=== PATIENT | female | born 1975 | race Caucasian/White ===

== ENCOUNTER 2016-08-06 19:46 | Inpatient (IN) | payer MEDICARE ==
[~2016-08-06] VITALS: Ht 154.9 cm; Wt 55.8 kg
[~2016-08-06 19:46] MED LIST: COLACE 100MG C100 MG PO; FLEXERIL 10 MG10 MG PO; NEURONTIN600 MG PO; OXYCODONE HCL15 MG PO; PERCOCET 5-3251 EACH PO
[2016-08-06 22:09] LABS: HEMOGLOBIN 10.8 gm/dl (12.3-15.3); RED BLOOD COUNT 3.68 M/UL (4.00-5.10); WHITE BLOOD COUNT 5.4 K/UL (4.5-11.0)
[2016-08-06 22:27] LABS: BUN/CREATININE RATIO 18 (0-10)
[2016-08-07 10:34] LABS: BUN/CREATININE RATIO 18 (0-10)
[2016-08-08] MEDS ORDERED: POTASSIUM99 MG PO (00:39)
[2016-08-08] MEDS ORDERED: MAGNESIUM27 MG PO (00:39)
[2016-08-08] MEDS ORDERED: CALCIUM500 MG PO (00:40)
[2016-08-08] MEDS ORDERED: TYLENOL PM EX-1 EACH PO (00:41)
[2016-08-09 04:35] LABS: WHITE BLOOD COUNT 5.4 K/UL (4.5-11.0)
[2016-08-09 04:39] LABS: HEMOGLOBIN 8.8 gm/dl (12.3-15.3); RED BLOOD COUNT 3.02 M/UL (4.00-5.10)
[2016-08-09 05:16] LABS: BUN/CREATININE RATIO 16 (0-10)
[2016-08-09 09:54] LABS: HEMOGLOBIN 9.7 gm/dl (12.3-15.3)
[2016-08-10 06:16] LABS: HEMOGLOBIN 10.1 gm/dl (12.3-15.3); WHITE BLOOD COUNT 6.4 K/UL (4.5-11.0)
[2016-08-10 06:18] LABS: RED BLOOD COUNT 3.38 M/UL (4.00-5.10)
[2016-08-11 06:20] LABS: HEMOGLOBIN 10.3 gm/dl (12.3-15.3); RED BLOOD COUNT 3.54 M/UL (4.00-5.10)
[2016-08-11 06:25] LABS: WHITE BLOOD COUNT 4.6 K/UL (4.5-11.0)
[2016-08-11] MEDS ORDERED: IRON325 M1 PO (10:12)
[2016-08-11] MEDS ORDERED: MIRALAX17 GM PO (10:12)
[2016-08-11] MEDS ORDERED: DEPAKOTE500 MG PO (10:13)
[2016-08-11] MEDS ORDERED: VITAMIN B-1000 MCG/M IM (10:13)
== END 2016-08-11 12:52 | disposition home or self-care (01) | DRG 641 ==
LOC: ER1 19:46 → ZEROF 08-07 02:26 → M/S 08-07 18:45
PROVIDERS: Emergency Medicine; ADMIT Family Medicine
DX: E16.2 Hypoglycemia, unspecified (principal); K62.5 Hemorrhage of anus and rectum; D62 Acute posthemorrhagic anemia; K91.2 Postsurgical malabsorption, not elsewhere classified; K95.89 Other complications of other bariatric procedure; G40.909 Epilepsy, unspecified, not intractable, without status epilepticus; G43.919 Migraine, unspecified, intractable, without status migrainosus; K60.2 Anal fissure, unspecified; Z98.84 Bariatric surgery status; Z98.0 Intestinal bypass and anastomosis status; Y83.8 Other surgical procedures as the cause of abnormal reaction of the patient, or of later complication, without mention of misadventure at the time of the procedure; Y92.009 Unspecified place in unspecified non-institutional (private) residence as the place of occurrence of the external cause; G25.2 Other specified forms of tremor; F31.9 Bipolar disorder, unspecified; F41.8 Other specified anxiety disorders; R19.7 Diarrhea, unspecified; K59.00 Constipation, unspecified; K64.8 Other hemorrhoids; K64.4 Residual hemorrhoidal skin tags; F17.210 Nicotine dependence, cigarettes, uncomplicated; N39.490 Overflow incontinence; R53.1 Weakness; I10 Essential (primary) hypertension; K21.9 Gastro-esophageal reflux disease without esophagitis; G89.29 Other chronic pain; R10.9 Unspecified abdominal pain; M19.90 Unspecified osteoarthritis, unspecified site; E53.8 Deficiency of other specified B group vitamins; Z87.828 Personal history of other (healed) physical injury and trauma; Z96.641 Presence of right artificial hip joint; Z90.710 Acquired absence of both cervix and uterus; Z88.5 Allergy status to narcotic agent; Z88.6 Allergy status to analgesic agent; Z88.8 Allergy status to other drugs, medicaments and biological substances; Z79.891 Long term (current) use of opiate analgesic; Z79.1 Long term (current) use of non-steroidal anti-inflammatories (NSAID); Z79.899 Other long term (current) drug therapy; Z83.3 Family history of diabetes mellitus; Z82.49 Family history of ischemic heart disease and other diseases of the circulatory system; Z80.9 Family history of malignant neoplasm, unspecified
CPT/HCPCS: 36415; 70450; 71020; 80048; 80053; 81001; 82272; 82550; 82553; 82607; 82728; 82962; 83540; 83550; 83690; 83735; 84443; 84484; 84681; 85014; 85018; 85025; 85027; 87045; 87046; 87086; 87177; 93005; 95816; 96361; 96374; 96375; 96376; 99285; G0378; J1200; J2270; J2405; J2765; J3420; J7030; J7040; Q0163; Q9962

== ENCOUNTER 2021-09-12 17:12 | Inpatient (IN) | payer MEDICARE ==
[~2021-09-12] VITALS: Ht 154.9 cm; Wt 55.5 kg
[~2021-09-12 17:12] MED LIST changes: +CALCIUM500 MG PO; +CYANOCOBAL1000 MCG/1 SC; +DEPAKOTE500 MG PO; +IRON325 M1 PO; +MAGNESIUM27 MG PO; +MIRALAX17 GM PO; +PANTOPRAZOLE SO40 MG PO; +POTASSIUM99 MG PO; +TYLENOL PM EX-1 EACH PO; +VITAMIN B-1000 MCG/M IM
[2021-09-12 19:19] LABS: HEMOGLOBIN 8.7 gm/dl (12.3-15.3); RED BLOOD COUNT 3.01 M/UL (4.00-5.10); WHITE BLOOD COUNT 9.5 K/UL (4.5-11.0)
[2021-09-12 19:43] LABS: BUN/CREATININE RATIO 22 (0-10)
[2021-09-12 19:53] LABS: BORDETELLA PARAPERTUSSIS Not Detected (Not Detectd); BORDETELLA PERTUSSIS Not Detected (Not Detectd); CHLAMYDIA PNEUMONIAE Not Detected (Not Detectd); CORONAVIRUS HKU1 Not Detected (Not Detectd); CORONAVIRUS NL63 Not Detected (Not Detectd); CORONAVIRUS OC43 Not Detected (Not Detectd); CORONOAVIRUS 229E Not Detected (Not Detectd); HUMAN METAPNEUMOVIRUS Not Detected (Not Detectd); HUMAN RHINOVIRUS/ENTEROVIRUS Not Detected (Not Detectd); INFLUENZA A Not Detected (Not Detectd); INFLUENZA B Not Detected (Not Detectd); MYCOPLASMA PNEUMONIAE Not Detected (Not Detectd); PARAINFLUENZA VIRUS 1 Not Detected (Not Detectd); PARAINFLUENZA VIRUS 2 Not Detected (Not Detectd); PARAINFLUENZA VIRUS 3 Not Detected (Not Detectd); PARAINFLUENZA VIRUS 4 Not Detected (Not Detectd); RESPIRATORY SYNCYTIAL VIRUS Not Detected (Not Detectd)
[2021-09-12 20:27] LABS: SARS-CoV-2 NOT DETECTED (Not Detectd)
[2021-09-12] MEDS ORDERED: GABAPENTIN800 MG PO (23:22)
[2021-09-13 03:08] LABS: HEMOGLOBIN 9.4 gm/dl (12.3-15.3); RED BLOOD COUNT 3.27 M/UL (4.00-5.10)
[2021-09-13 03:19] LABS: WHITE BLOOD COUNT 6.2 K/UL (4.5-11.0)
[2021-09-13 03:36] LABS: BUN/CREATININE RATIO 17 (0-10)
[2021-09-14 03:15] LABS: RED BLOOD COUNT 3.12 M/UL (4.00-5.10)
[2021-09-14 03:22] LABS: WHITE BLOOD COUNT 9.2 K/UL (4.5-11.0)
[2021-09-14 04:02] LABS: BUN/CREATININE RATIO 17 (0-10)
[2021-09-15 06:27] LABS: HEMOGLOBIN 8.4 gm/dl (12.3-15.3); RED BLOOD COUNT 2.85 M/UL (4.00-5.10)
[2021-09-15 06:28] LABS: WHITE BLOOD COUNT 5.6 K/UL (4.5-11.0)
[2021-09-15 07:07] LABS: BUN/CREATININE RATIO 16 (0-10)
[2021-09-16 06:52] LABS: HEMOGLOBIN 9.3 gm/dl (12.3-15.3)
[2021-09-16 06:53] LABS: RED BLOOD COUNT 3.24 M/UL (4.00-5.10); WHITE BLOOD COUNT 7.3 K/UL (4.5-11.0)
[2021-09-16 07:13] LABS: BUN/CREATININE RATIO 19 (0-10)
[2021-09-16 16:14] LABS: ORGANISM ID Not indicated. (.); SPECIMEN SOURCE Urine (.); STREPTOCOCCUS PNEUMONIAE AG Negative (Negative)
[2021-09-17 06:16] LABS: HEMOGLOBIN 8.8 gm/dl (12.3-15.3); RED BLOOD COUNT 3.03 M/UL (4.00-5.10); WHITE BLOOD COUNT 7.6 K/UL (4.5-11.0)
[2021-09-17 06:28] LABS: BUN/CREATININE RATIO 14 (0-10)
[2021-09-18 07:04] LABS: HEMOGLOBIN 8.4 gm/dl (12.3-15.3); RED BLOOD COUNT 2.87 M/UL (4.00-5.10)
[2021-09-18 07:08] LABS: WHITE BLOOD COUNT 12.7 K/UL (4.5-11.0)
[2021-09-18 07:38] LABS: BUN/CREATININE RATIO 24 (0-10)
[2021-09-19 04:15] LABS: HEMOGLOBIN 8.2 gm/dl (12.3-15.3); RED BLOOD COUNT 2.82 M/UL (4.00-5.10)
[2021-09-19 04:32] LABS: BUN/CREATININE RATIO 19 (0-10)
[2021-09-19 04:57] LABS: WHITE BLOOD COUNT 9.1 K/UL (4.5-11.0)
[2021-09-19] MEDS ORDERED: AMOX TR-K CLV1 EAC4 PO (09:18)
[2021-09-19] MEDS ORDERED: FERROUS GLUCON324 M1 PO (09:18)
== END 2021-09-19 13:06 | disposition home or self-care (01) | DRG 178 ==
LOC: ER1 17:12 → M/S 21:12 → CDU 21:12 → MED SURG 4 21:12 → M/S 23:09 → MED SURG 4 09-14 17:45
PROVIDERS: Internal Medicine; Internal Medicine Critical Care Medicine; Preventive Medicine Occupational Medicine; ADMIT Internal Medicine
DX: A48.1 Legionnaires' disease (principal); Z20.822 Contact with and (suspected) exposure to COVID-19; I31.3 Pericardial effusion (noninflammatory); J90 Pleural effusion, not elsewhere classified; G89.29 Other chronic pain; R53.81 Other malaise; F31.9 Bipolar disorder, unspecified; D75.839 Thrombocytosis, unspecified; G40.909 Epilepsy, unspecified, not intractable, without status epilepticus; D64.9 Anemia, unspecified; K21.9 Gastro-esophageal reflux disease without esophagitis; F03.90 Unspecified dementia, unspecified severity, without behavioral disturbance, psychotic disturbance, mood disturbance, and anxiety; G43.909 Migraine, unspecified, not intractable, without status migrainosus; Z87.01 Personal history of pneumonia (recurrent); Z96.82 Presence of neurostimulator; Z98.890 Other specified postprocedural states; Z90.49 Acquired absence of other specified parts of digestive tract; Z90.710 Acquired absence of both cervix and uterus; Z80.3 Family history of malignant neoplasm of breast; Z88.8 Allergy status to other drugs, medicaments and biological substances; Z88.6 Allergy status to analgesic agent
CPT/HCPCS: 36415; 36600; 71045; 71046; 71250; 80048; 80053; 80076; 80307; 82009; 82550; 82553; 82607; 82728; 82746; 82803; 83540; 83550; 83605; 83690; 83880; 84484; 85025; 85027; 85379; 85652; 86140; 87040; 87081; 87205; 87278; 87633; 87899; 93005; 93970; 94664; 96361; 96374; 96375; 97116-GP-CQ; 97162; 99285; J0456; J0692; J0696; J1170; J1335; J1650; J2270; J2405; J2930; J7030; Q9967